=== PATIENT | male | born 1985 | race American Indian/Alaskan Native ===

== ENCOUNTER 2018-09-30 12:20 | Emergency (ER) | payer SELFPAY ==
--- NOTE | 2018-09-30 12:37 | C.PDOC ---
History Of Present Illness 32 y/o male pt presents to the ER c/o superficial laceration on the pad of his right 5th finger. Pt reports he was washing a glass when it cut his finger. Pt denies changes in sensation and numbness. Time Seen by Provider: 09/30/18 12:34 Chief Complaint (Nursing): Abnormal Skin Integrity History Per: Patient History/Exam Limitations: no limitations Onset/Duration Of Symptoms: Hrs Current Symptoms Are (Timing): Still Present Past Medical History Reviewed: Historical Data, Nursing Documentation, Vital Signs Vital Signs: Last Vital Signs Temp 97.2 F L 09/30/18 12:28 Pulse 76 09/30/18 12:28 Resp 20 09/30/18 12:28 BP 138/92 H 09/30/18 12:28 Pulse Ox 100 09/30/18 12:28 Family History: States: No Known Family Hx - Social History Hx Alcohol Use: Yes Hx Substance Use: No - Immunization History Hx Tetanus Toxoid Vaccination: No Hx Influenza Vaccination: No Hx Pneumococcal Vaccination: No Review Of Systems Except As Marked, All Systems Reviewed And Found Negative. Skin: Positive for: Other (superficial laceration on pad of right 5th finger) Neurological: Negative for: Numbness, Other (changes in sensation ) Physical Exam - Physical Exam Appears: Well, Non-toxic, No Acute Distress Skin: Warm, Dry Head: Normacephalic Extremity: Normal ROM, No Deformity, No Swelling, Other (1 cm superficial laceration; minimal subcutaneous tissue involved; no foreign body ) ED Course And Treatment O2 Sat by Pulse Oximetry: 100 (RA) Pulse Ox Interpretation: Normal Laceration - Laceration Repair pad of right 5th finger Wound Length (In cm): 1 Description Of Wound: Linear Wound Cleansed With: Betadine Wound Examination: Irrigated With Saline, No FB With Wound Exploration, No Tendon Injury With Wound Exploration Wound Closure: Skin Glue Wound Complexity: Simple Medical Decision Making Medical Decision Making: very superficial lac minimal SQ involved no FB defer sutures, with informed consent by pt Disposition Doctor Will See Patient In The: Office Counseled Patient/Family Regarding: Studies Performed, Diagnosis - Disposition Referrals: [facility] [Outside] [facility] [Outside] [facility] [Outside] [facility] [Outside] Disposition: HOME/ ROUTINE Disposition Time: 12:37 Condition: GOOD Additional Instructions: keep bandaged today keep clean and bandaged for 3 days glue will wear off in 3-4 days no antibiotics required. Instructions: Wound Care (DC) Forms: [facility] (Brazilian), Work Excuse - Clinical Impression Clinical Impression: Finger laceration - Scribe Statement The provider has reviewed the documentation as recorded by the Scribe Veda Clemente Provider Attestation: All medical record entries made by the Scribe were at my direction and personally dictated by me. I have reviewed the chart and agree that the record accurately reflects my personal performance of the history, physical exam, medical decision making, and the department course for this patient. I have also personally directed, reviewed, and agree with the discharge instructions and disposition.
[2018-09-30 12:41] VITALS: BP 138/92; PULSE 76; RESP 20; TEMP 97.2; O2SAT 100
== END 2018-09-30 12:54 | disposition home or self-care (01) ==
LOC: C.ER 12:20
DX: S61.216A Laceration without foreign body of right little finger without damage to nail, initial encounter (principal); W25.XXXA Contact with sharp glass, initial encounter; Y93.G1 Activity, food preparation and clean up

== ENCOUNTER 2018-11-13 11:41 | Emergency (ER) | payer OTHER ==
[2018-11-13 11:52] VITALS: BP 130/84; PULSE 74; RESP 20; TEMP 98.3; O2SAT 100
[2018-11-13 12:24] LABS: URINE BILIRUBIN NEGATIVE (NEGATIVE); URINE BLOOD NEGATIVE (NEGATIVE); URINE CLARITY Clear (Clear); URINE COLOR Yellow (YELLOW); URINE GLUCOSE (UA) NORMAL (Normal); URINE LEUKOCYTE ESTERASE TRACE Leu/uL (Negative); URINE PROTEIN NEGATIVE (NEGATIVE); URINE UROBILINOGEN NORMAL mg/dL (0.2-1.0)
[2018-11-13] MEDS ORDERED: cefTRIAXone (Rocephin) 250 mg Inj IM STA (12:35)
--- NOTE | 2018-11-13 12:47 | C.PDOC ---
History Of Present Illness 32 y/o male,with no significant PMhx, presents to the ER for medical evaluation of dysuria which has been present for the past 2 weeks. Patient states that he is sexually active. Patient reports that he is in a monogamous relationship with his girlfriend. He notes that he is not taking any medications. Denies having penile discharge, penile lesions, fever, chills, CP, SOB, nausea, vomiting, abdominal pain, and outside sexual relationship with other partners. Time Seen by Provider: 11/13/18 12:10 Chief Complaint (Nursing): Back Pain History Per: Patient History/Exam Limitations: no limitations Onset/Duration Of Symptoms: Days Current Symptoms Are (Timing): Still Present Severity: Moderate Past Medical History Reviewed: Historical Data, Nursing Documentation, Vital Signs Vital Signs: Last Vital Signs Temp 98.3 F 11/13/18 11:48 Pulse 74 11/13/18 11:48 Resp 20 11/13/18 11:48 BP 130/84 11/13/18 11:48 Pulse Ox 100 11/13/18 11:48 - Medical History PMH: Gastritis Surgical History: No Surg Hx Family History: States: No Known Family Hx - Social History Hx Alcohol Use: Yes Hx Substance Use: Yes - Immunization History Hx Tetanus Toxoid Vaccination: No Hx Influenza Vaccination: No Hx Pneumococcal Vaccination: No Review Of Systems Except As Marked, All Systems Reviewed And Found Negative. Constitutional: Negative for: Fever, Chills Cardiovascular: Negative for: Chest Pain Respiratory: Negative for: Shortness of Breath Gastrointestinal: Negative for: Nausea, Vomiting, Abdominal Pain Genitourinary: Positive for: Dysuria. Negative for: Hematuria Physical Exam - Physical Exam Appears: Non-toxic, No Acute Distress Skin: Normal Color, Warm, Dry Head: Atraumatic, Normacephalic Eye(s): bilateral: Normal Inspection Nose: Normal Oral Mucosa: Moist Neck: Supple Chest: Symmetrical Cardiovascular: Rhythm Regular Respiratory: Normal Breath Sounds, No Rales, No Rhonchi, No Wheezing Gastrointestinal/Abdominal: Normal Exam, Soft, No Tenderness, No Guarding, No Rebound Neurological/Psych: Oriented x3, Normal Speech, Normal Cognition, Normal Sensation ED Course And Treatment O2 Sat by Pulse Oximetry: 100 (RA) Pulse Ox Interpretation: Normal Medical Decision Making Medical Decision Making: A/P: Dysuria r/o Urethritis --UA negative --pending results for GC/ Chlamydia --treated with Rocephin 250 mg IM and Zithromax 1,000 mg PO today --Tylenol 650 mg PO and can continue prn for pain --follow up with clinic for full STI evaluation --patient verbalized understanding Disposition Counseled Patient/Family Regarding: Studies Performed, Diagnosis, Need For Followup, Rx Given - Disposition Referrals: [facility] [Outside] Disposition: HOME/ ROUTINE Disposition Time: 13:29 Condition: STABLE Additional Instructions: YURI LOCO, thank you for letting us take care of you today. Your provider was Marcos Silva MD/Chloé Sanchez PA-C and you were treated for BACK PAIN. The emergency medical care you received today was directed at your acute symptoms. If you were prescribed any medication, please fill it and take as directed. It may take several days for your symptoms to resolve. Return to the Emergency Department if your symptoms worsen, do not improve, or if you have any other problems. Please contact your doctor or call one of the physicians/clinics you have been referred to that are listed on the Patient Visit Information form that is included in your discharge packet. Bring any paperwork you were given at discharge with you along with any medications you are taking to your follow up visit. Our treatment cannot replace ongoing medical care by a primary care provider outside of the emergency department. Thank you for allowing the [facility] team to be part of your care today. If you had a urine: It will take several days for the results, if any change in treatment is needed we will contact you. Prescriptions: RX: Acetaminophen [Arthritis Pain] 650 mg PO TID PRN #30 tablet.er PRN Reason: Pain, Moderate (4-7) Instructions: Dysuria, Adult (DC) Forms: [employer] ([place]wana) - Clinical Impression Clinical Impression: Dysuria, STI (sexually transmitted infection) - PA / PEER SPECIALIST / Resident Statement MD/DO has reviewed & agrees with the documentation as recorded. - Scribe Statement The provider has reviewed the documentation as recorded by the Renitaibe Jenni Nettles Provider Attestation All medical record entries made by the Scribe were at my direction and personally dictated by me. I have reviewed the chart and agree that the record accurately reflects my personal performance of the history, physical exam, medical decision making, and the department course for this patient. I have also personally directed, reviewed, and agree with the discharge instructions and disposition.
== END 2018-11-13 13:36 | disposition home or self-care (01) ==
LOC: C.ER 11:41
DX: R30.0 Dysuria (principal); A64 Unspecified sexually transmitted disease
CPT/HCPCS: 81001; 87491; 87591; 96372; 99284; J0696